=== PATIENT | female | born 1950 | race Caucasian/White ===

== ENCOUNTER 2018-10-13 15:25 | Inpatient (IN) | payer MEDICARE, OTHER ==
[~2018-10-13] VITALS: Ht 155.6 cm; Wt 76.7 kg
[2018-10-13 15:58] VITALS: BMI 31.9
[2018-10-22] VITALS (28 sets, daily range): BP systolic 116–152; BP diastolic 55–76; PULSE 63–78; RESP 13–20; Ht 155.6 cm; Wt 76.7 kg
--- NOTE | 2018-10-22 05:57 | HPN ---
Date/Time of Note Date/Time of Note DATE: 10/22/18 TIME: 05:57 Interval H&P Admission Note Pt. seen H&P reviewed: No system changes PARMINDER CATALAN MD Oct 22, 2018 05:57
--- NOTE | 2018-10-22 05:59 | OPR ---
Date/Time of Note Date/Time of Note DATE: 10/22/18 TIME: 05:57 Operative Report Procedure Date: Oct 22, 2018 Preoperative Diagnosis Left hip primary arthritis Postoperative Diagnosis Left hip primary arthritis Operation/Procedure Performed 1. Left total hip arthroplasty 2. Left hip injection of PRP solution Surgeon see signature line [employer] Quang Pineda PA-C Anesthesia Type: general Estimated Blood Loss: 100 - 150 ml's Transfusion none Specimen None Grafts/Implants See op note Complications none Pt Condition Post Procedure: stable Disposition: PACU Procedure Description INSTALLERS MECHANICAL SURGEON: Quang Pineda PA-C was asked to be present at my request as a result of the complexity associated with this procedure including positioning of the extremity, positioning of the instrumentation and protection of the neurovascular structures. In my opinion, the assistance offered by a geodetic surveyor technologist is insufficient and he should be compensated for his time. PROCEDURE IN DETAIL: Following the administration of general endotracheal anesthesia supplemented with a spinal anesthetic, the patient was placed in the supine position. The antecubital fossa on the left was prepped and 60 cc of blood were aspirated. Under sterile conditions, the blood was passed off to the banking representative from the company who prepared the PRP solution. The left lower extremity was then prepped and draped in the usual sterile fashion. A sausage smoker radiograph was obtained for preliminary limb length and femoral size as well as acetabular size. A lateral incision was then made exposing the tensor fascia the fascia was incised the tensor was retracted laterally and the vessels were cauterized. The anterior capsule was then identified and prepared. A capsulectomy was then performed and the femoral head was then evaluated. Severe arthritic changes were noted. A femoral head cut was then made in the appropriate degree of version and inclination. Following dislocation, severe arthritic changes were noted with very certain severe cystic changes in the femoral head. The acetabulum was then exposed and a capsulectomy and labrectomy were completed. The central portion was then entered and serially reamed up to the 47 mm size. A Depuy Greenleaf cup which was 48 to mm, with a standard liner was then fit into position with solid fixation. A 30 mm screw was used for additional fixation. Attention was then directed to the femur, the femur was exposed and prepared. The canal was entered and serially reamed up to the size 3, standard offset. The femoral canal was then thoroughly irrigated and the PRP solution was then instilled into the femoral canal. A size 3 standard offset Depuy Actis stem was then inserted with solid fixation. A 32 mm, +1.5 mm femoral head, which was ceramic was then inserted. The leg was taken through full range of motion with no evident instability. In addition, radiographs revealed excellent position with reproduction of the limb lengths within a millimeter. The wound was irrigated thoroughly. The wound was then closed in layers and a Prenio for the final cover. This was watertight. Estimated blood loss was procedure was 150 cc. Postoperative radiographs will be obtained in the recovery room. PARMINDER CATALAN MD Oct 22, 2018 05:59
[2018-10-22] MEDS ORDERED: SOD CHLORIDE 0.9% 100 ML, TRANEXAMIC ACID 3,000 MG IRR ONE ×2 (06:00)
[2018-10-22] MEDS ORDERED: TRANEXAMIC ACID 1GM/100ML(PMX) 100 ML IVPB ONE (06:00)
[2018-10-22] MEDS ORDERED: DEXAMETHASONE 1 MG TAB PO ONE (06:00)
[2018-10-22] MEDS ORDERED: GABAPENTIN 300 MG CAP PO ONE (06:00)
[2018-10-22] MEDS ORDERED: CEFAZOLIN 2 GM/50 ML (PMX) 50 ML IVPB ONE (06:00)
[2018-10-22] MEDS ORDERED: RSV10T PO (06:04)
[2018-10-22] MEDS ORDERED: RAMI10CA42 PO (06:04)
[2018-10-22] MEDS ORDERED: OXYC5CAP17 PO (06:04)
[2018-10-22] MEDS ORDERED: DOXY100C PO (06:04)
[2018-10-22] MEDS ORDERED: DOXY100T21 PO (06:04)
[2018-10-22] MEDS: LACTATED RINGER'S 1,000 ML IV SCH ×3 (06:27→17:03)
[2018-10-22] MEDS ORDERED: BUPIVACAINE 0.5% (SDV) 30 ML, morphine SULFATE (PF) 8 MG, EPINEPHrine 0.3 MG, KETOROLAC... IRR SCH ×7 (06:30)
--- NOTE | 2018-10-22 06:44 | PREAC ---
Date/Time of Note Date/Time of Note DATE: 10/22/18 TIME: 06:43 Anesthesia Eval and Record Evaluation Time Pre-Procedure Interview DATE: 10/22/18 TIME: 06:43 Age 68 Sex female NPO: 8 hrs Preoperative diagnosis Hip OA Planned procedure THR Past Medical History Past Medical History: Includes Cardio: HTN, Dyslipidemia GI: Obesity Surgery & Anesthesia Issues No known issue Meds Anticoagulation: No Beta Ceci within 24 hr: No Reason Beta Ceci not given: Pt. not on B-Ceci Reported Medications Doxycycline* (Vibramycin*) 100 Mg Capsule, 100 MG PO BID, EA 10/22/18 Doxycycline Monohydrate* (Doxycycline Monohydrate*) 100 Mg Tablet, 100 MG PO BID, TAB 10/22/18 Oxycodone Hcl* (IR) (Oxycodone Hcl*) 5 Mg Capsule, 10 MG PO Q4H PRN for PAIN, CAP 10/22/18 Rosuvastatin Calcium* (Crestor*) 10 Mg Tablet, 10 MG PO QHS, #30 TAB 10/22/18 Ramipril (Altace) 10 Mg Capsule, 10 MG PO DAILY, CAP 10/22/18 Current Medications Lactated Ringer's 1,000 ml @ 25 mls/hr Q24H IV Last administered on 10/22/18at 06:27; Admin Dose 25 MLS/HR; Start 10/22/18 at 06:00 Meds reviewed: Yes Allergies Coded Allergies: No Known Allergy (Unverified , 10/22/18) Allergies Reviewed: Yes Labs/Studies Labs Reviewed: Reviewed by anesthesiologist test: N/A Studies: ECG Pre-procedure Exam Last vitals Vital Signs Date Temp Pulse Resp B/P (MAP) Pulse Ox O2 O2 Flow FiO2 Time Delivery Rate 10/22/18 98.1 68 18 141/74 96 Room Air 06:05 (96) Airway: Adequate mouth opening, Adequate thyromental dist Mallampati: Mallampati II Teeth: Normal Lung: Normal Heart: Normal ASA Physical Status ASA physical status: 2 Emergency: None Planned Anesthetic General/MAC: ETT Neuraxial: Spinal Planned Pain Management Sub-arachniod narcotics Pre-operative Attestations Prior to commencing anesthesia and surgery, the patient was re-evaluated, there was verification of: *The patient's identity *The results of appropriate recent lab work and preoperative vital signs *The above evaluation not changing prior to induction *Anesthetic plan, risk benefits, alternative and complications discussed with patient/family; questions answered; patient/family understands, accepts and wishes to proceed. AURELIA LANDA Oct 22, 2018 06:44
[2018-10-22] MEDS ORDERED: POLYMYXIN/BACITRACIN 1L IRRIG ONE (06:47)
[2018-10-22] MEDS ORDERED: THROMBIN 5000 UNIT VIAL ONE (06:47)
[2018-10-22] MEDS ORDERED: CA CHLORIDE (GM) 10% 10 ML INJ ONE (06:47)
[2018-10-22] MEDS ORDERED: DIPHENHYDRAMINE 50 MG INJ IV PRN ×2 (07:00→09:00)
[2018-10-22] MEDS ORDERED: HYDROmorphONE 1 MG/5 ML IV SYRINGE IV PRN (07:00)
[2018-10-22] MEDS ORDERED: MEPERIDINE 25 MG INJ IV PRN (07:00)
[2018-10-22] MEDS ORDERED: FENTAnyl 50 MCG/ML VIAL IV PRN ×2 (07:00)
[2018-10-22] MEDS ORDERED: MIDAZOLAM 1 MG/ML 2 ML INJ ONE (07:00)
[2018-10-22] MEDS ORDERED: ONDANSETRON 4 MG INJ IV PRN ×2 (07:00→09:00)
[2018-10-22] MEDS ORDERED: METOCLOPRAMIDE 10 MG INJ IV PRN (07:00)
[2018-10-22] MEDS ORDERED: ALBUTEROL 0.083% (NEB) 2.5 MG/3 ML AMP HHN PRN (07:00)
[2018-10-22] MEDS ORDERED: FENTAnyl 50 MCG/ML VIAL ONE (07:35)
[2018-10-22] MEDS ORDERED: SUCCINYLCHOLINE CHLORIDE 100 MG/5 ML SYG IV ONE (08:48)
[2018-10-22] MEDS ORDERED: LIDOCAINE 100 MG SYRINGE ONE (08:48)
[2018-10-22] MEDS ORDERED: TRANEXAMIC ACID 1GM/100ML(PMX) 100 ML ONE (08:48)
[2018-10-22] MEDS ORDERED: CEFAZOLIN 1 GM INJ ONE (08:48)
[2018-10-22] MEDS ORDERED: NEOSTIGMINE 3 MG/3 ML SYRINGE ONE (08:48)
[2018-10-22] MEDS ORDERED: GLYCOPYRROLATE 0.4 MG INJ ONE (08:48)
[2018-10-22] MEDS ORDERED: ROCURONIUM 50 MG INJ ONE (08:48)
[2018-10-22] MEDS ORDERED: PROPOFOL 20 ML ONE (08:48)
--- NOTE | 2018-10-22 08:51 | PDOCDIS ---
Discharge Instructions DIAGNOSIS Discharge Diagnosis Hip arthritis CONDITION [id number] Patient Condition: Usced2q Good HOME CARE INSTRUCTIONS: [id number] Diet Instructions: [id number] Regular ACTIVITY: [id number] Activity Restrictions: Ierzs2g Slowly Increase Activity Keep Limb Elevated [id number] Bathing Restrictions: Wanbs6g Shower FOLLOW UP/APPOINTMENTS Follow-up Plan 2 weeks in the office SCHOOL/WORK RELEASE May return to School/Work with: With Restrictions School/Work Release Comment: No hip extension for 6 weeks PARMINDER CATALAN MD Oct 22, 2018 08:51
[2018-10-22] MEDS ORDERED: MAGNESIUM HYDROXIDE 30ML CUP PO PRN (09:00)
[2018-10-22] MEDS ORDERED: ZOLPIDEM 5 MG TAB PO PRN (09:00)
[2018-10-22] MEDS ORDERED: NACL 0.9% 3 ML SYG IV SCH (09:00)
[2018-10-22] MEDS: SENNA/DOCUSATE NA (8.6MG/50MG) TAB PO SCH ×3 (09:00→20:19)
[2018-10-22] MEDS ORDERED: oxyCODONE 5 MG TAB PO PRN ×2 (09:00)
[2018-10-22] MEDS: CEFAZOLIN 1 GM/50 ML (PMX) 50 ML IVPB SCH ×2 (09:55→17:03)
[2018-10-22] MEDS: ACETAMINOPHEN 1000MG/100ML IV 100 ML IVPB SCH ×2 (09:55→17:03)
[2018-10-22] MEDS: DEXAMETHASONE 2 MG TAB PO SCH ×3 (11:16→23:44)
[2018-10-22] MEDS: oxyCODONE 5 MG TAB PO PRN ×2 (11:17→16:56)
--- NOTE | 2018-10-22 15:54 | PAC ---
Date/Time of Note Date/Time of Note DATE: 10/22/18 TIME: 15:54 Post-Anesthesia Notes Post-Anesthesia Note Last documented vital signs Vital Signs Date Temp Pulse Resp B/P (MAP) Pulse Ox O2 O2 Flow FiO2 Time Delivery Rate 10/22/18 98.0 75 18 124/60 97 14:16 (81) 10/22/18 Room Air 10:05 Activity: WNL Respiratory function: WNL Cardiovascular function: WNL Mental status: Baseline Pain reasonably controlled: Yes Hydration appropriate: Yes Nausea/Vomiting absent: Yes AURELIA LANDA Oct 22, 2018 15:54
[2018-10-22] MEDS: BENAZEPRIL 40 MG TAB PO SCH (16:00)
[2018-10-22] MEDS: HYDROmorphONE 1 MG/ML SYG IV PRN ×2 (19:33→23:34)
[2018-10-22] MEDS ORDERED: ATORVASTATIN 40 MG TAB PO SCH (21:00)
[2018-10-22] MEDS ORDERED: GABAPENTIN 300 MG CAP PO SCH (21:00)
[2018-10-23] MEDS: CEFAZOLIN 1 GM/50 ML (PMX) 50 ML IVPB SCH (00:39)
[2018-10-23] MEDS: ACETAMINOPHEN 1000MG/100ML IV 100 ML IVPB SCH (01:51)
[2018-10-23] MEDS: HYDROmorphONE 1 MG/ML SYG IV PRN (03:51)
[2018-10-23] MEDS: LACTATED RINGER'S 1,000 ML IV SCH ×2 (05:06→06:00)
[2018-10-23] MEDS: oxyCODONE 5 MG TAB PO PRN ×3 (05:08→13:08)
--- NOTE | 2018-10-23 06:12 | PN ---
Date/Time of Note Date/Time of Note DATE: 10/23/18 TIME: 06:12 Subjective Awake and alert. Comfortable this morning. Anticipating ambulation. Objective Vitals Vital Signs Date Temp Pulse Resp B/P (MAP) Pulse Ox O2 O2 Flow FiO2 Time Delivery Rate 10/22/18 97.8 67 18 137/61 97 19:10 (86) 10/22/18 Room Air 17:45 Intake and Output 10/22/18 10/22/18 10/23/18 1515:00 23:00 07:00 IntakeIntake Total 2000 ml 2950 ml 800 ml OutputOutput Total 350 ml 1650 ml 2500 ml BalanceBalance 1650 ml 1300 ml -1700 ml Wound is clean and dry. Neurologically intact. No signs of DVT. Results Result Diagram: 10/23/18 0425 Medications Medications Current Medications Lactated Ringer's 1,000 ml @ 25 mls/hr Q24H IV Last administered on 10/22/18at 06:27; Admin Dose 25 MLS/HR; Start 10/22/18 at 06:00 Benazepril HCl (Lotensin) 40 mg DAILY PO ; Start 10/22/18 at 16:00 Atorvastatin Calcium (Lipitor) 40 mg DAILY@21 PO Last administered on 10/22/18at 20:19; Admin Dose 40 MG; Start 10/22/18 at 21:00 Lactated Ringer's 1,000 ml @ 100 mls/hr Q10H IV Last administered on 10/23/18at 05:06; Admin Dose 100 MLS/HR; Start 10/22/18 at 08:48 Senna/Docusate Sodium (Senokot-S) 1 tab BID PO Last administered on 10/22/18at 20:19; Admin Dose 1 TAB; Start 10/22/18 at 09:00 Simethicone (Mylicon) 80 mg TID PRN PO .GAS; Start 10/22/18 at 09:00 Magnesium Hydroxide (Milk Of Mag) 30 ml BID PRN PO .CONSTIPATION; Start 10/22/18 at 09:00 Magnesium Hydroxide (Milk Of Mag) 30 ml HS PO ; Start 10/24/18 at 21:00 Gabapentin (Neurontin) 300 mg HS PO Last administered on 10/22/18at 20:19; Admin Dose 300 MG; Start 10/22/18 at 21:00 Oxycodone HCl (Roxicodone) 15 mg Q4H PRN PO .PAIN Last administered on 10/23/18 05:08; Admin Dose 15 MG; Start 10/22/18 at 09:00 Oxycodone HCl (Roxicodone) 10 mg Q4H PRN PO .PAIN Last administered on 10/22/18at 21:40; Admin Dose 10 MG; Start 10/22/18 at 09:00 Oxycodone HCl (Roxicodone) 5 mg Q4H PRN PO .PAIN Last administered on 10/22/18at 22:40; Admin Dose 5 MG; Start 10/22/18 at 09:00 Hydromorphone HCl (Dilaudid) 1 mg Q4H PRN IV .BREAKTHROUGH PAIN Last administered on 10/23/18at 03:51; Admin Dose 1 MG; Start 10/22/18 at 09:00 Ondansetron HCl (Zofran Inj) 4 mg Q6H PRN IV NAUSEA/VOMITING; Start 10/22/18 at 09:00 Diphenhydramine HCl (Benadryl) 25 mg Q6H PRN IV .PRURITUS; Start 10/22/18 at 09:00 Zolpidem Tartrate (Ambien) 10 mg HS PRN PO .INSOMNIA; Start 10/22/18 at 09:00 IV Flush (NS 3 ml) 3 ml per protocol IV ; Start 10/22/18 at 09:00 Aspirin (Ecotrin) 325 mg DAILY PO ; Start 10/23/18 at 09:00 VTE Prophylaxis Risk score (from Nsg)>0 risk: 8 SCD applied (from Nsg): Yes Lines/Catheters IV Catheter Type: Saline Lock Munguia in Place: No Assessment/Plan Assessment/Plan Assessment: Status post total hip replacement Plan: Begin PT this morning and discharge when independent. PARMINDER CATALAN MD Oct 23, 2018 06:12
--- NOTE | 2018-10-23 06:13 | DS ---
Date/Time of Note Date/Time of Note DATE: 10/23/18 TIME: 06:12 Discharge Summary Admission/Discharge Info Admit Date/Time Oct 22, 2018 at 05:22 Discharge Date/Time 10/23/2018 Discharge Diagnosis Hip arthritis Patient Condition: Good Hospital Course Admitted and underwent uncomplicated procedure. Postop day 1 independently ambulatory to be discharged followed up in 2 weeks Home Meds Reported Medications Doxycycline* (Vibramycin*) 100 Mg Capsule, 100 MG PO BID, EA 10/22/18 Oxycodone Hcl* (IR) (Oxycodone Hcl*) 5 Mg Capsule, 10 MG PO Q4H PRN for PAIN, CAP 10/22/18 Rosuvastatin Calcium* (Crestor*) 10 Mg Tablet, 10 MG PO QHS, #30 TAB 10/22/18 Ramipril (Altace) 10 Mg Capsule, 10 MG PO DAILY, CAP 10/22/18 Discontinued Reported Medications Doxycycline Monohydrate* (Doxycycline Monohydrate*) 100 Mg Tablet, 100 MG PO BID, TAB 10/22/18 Follow-up Plan 2 weeks in the office Primary Care Provider Care Physician No Primary Pending Labs Laboratory Tests Test 10/22/18 10:18 10/23/18 04:25 White Blood Count 11.0 10^3/ul (4.8-10.8) 10.8 10^3/ul (4.8-10.8) Red Blood Count 3.40 10^6/ul (4.20-5.40) 3.28 10^6/ul (4.20-5.40) Hemoglobin 10.8 g/dl (12.0-16.0) 10.4 g/dl (12.0-16.0) Hematocrit 33.5 % (37.0-47.0) 31.7 % (37.0-47.0) Mean Corpuscular Volume 98.5 fl (82.0-101.0) 96.6 fl (82.0-101.0) Mean Corpuscular 31.8 pg (29.0-33.0) 31.7 pg (29.0-33.0) Hemoglobin Mean Corpuscular 32.2 g/dl (32.0-37.0) 32.8 g/dl (32.0-37.0) Hemoglobin Concent Red Cell Distribution 12.7 % (11.5-14.5) 12.8 % (11.5-14.5) Width Platelet Count 176 10^3/UL (140-415) 173 10^3/UL (140-415) Mean Platelet Volume 10.1 fl (7.4-10.4) 10.8 fl (7.4-10.4) Immature Granulocytes % 0.600 % (0.001-0.429) 0.500 % (0.001-0.429) Neutrophils % 88.8 % (39.0-77.0) 87.5 % (39.0-77.0) Lymphocytes % 7.4 % (15.0-51.0) 6.5 % (15.0-51.0) Monocytes % 2.6 % (0.0-11.0) 5.4 % (0.0-11.0) Eosinophils % 0.1 % (0.0-7.0) 0.0 % (0.0-7.0) Basophils % 0.5 % (0.0-2.0) 0.1 % (0.0-2.0) Nucleated Red Blood Cells 0.0 /100WBC (0.0-0.0) 0.0 /100WBC (0.0-0.0) % Immature Granulocytes # 0.070 10^3/ul (0.0-0.031) 0.050 10^3/ul (0.0-0.031) Neutrophils # 9.7 10^3/ul (1.6-7.5) 9.5 10^3/ul (1.6-7.5) Lymphocytes # 0.8 10^3/ul (0.8-2.9) 0.7 10^3/ul (0.8-2.9) Monocytes # 0.3 10^3/ul (0.3-0.9) 0.6 10^3/ul (0.3-0.9) Eosinophils # 0.0 10^3/ul (0.0-0.5) 0.0 10^3/ul (0.0-0.5) Basophils # 0.1 10^3/ul (0.0-0.1) 0.0 10^3/ul (0.0-0.1) Nucleated Red Blood Cells 0.0 10^3/ul (0.0-0.0) 0.0 10^3/ul (0.0-0.0) # PARMINDER CATALAN MD Oct 23, 2018 06:13
[2018-10-23 07:39] VITALS: BP 128/64; PULSE 63; RESP 18
[2018-10-23] MEDS: SENNA/DOCUSATE NA (8.6MG/50MG) TAB PO SCH (08:45)
[2018-10-23] MEDS: DEXAMETHASONE 2 MG TAB PO SCH (08:45)
[2018-10-23] MEDS: BENAZEPRIL 40 MG TAB PO SCH (08:46)
[2018-10-23] MEDS ORDERED: ASPIRIN (EC) 325 MG TAB PO SCH (09:00)
[2018-10-24] MEDS ORDERED: MAGNESIUM HYDROXIDE 30ML CUP PO SCH (21:00)
== END 2018-10-23 15:30 | disposition home or self-care (01) | DRG 470 ==
LOC: UNDOADMIN 15:25 → REC 15:25 → MS1 10-22 10:13
PROVIDERS: ADMIT Orthopaedic Surgery; ATTEND Orthopaedic Surgery
PROC: 0SRB03Z Replacement of Left Hip Joint with Ceramic Synthetic Substitute, Open Approach (ICD-10-PCS; principal; 2018-10-22 07:00)
DX: M16.12 Unilateral primary osteoarthritis, left hip (principal)
CPT/HCPCS: 72170; 73530; 85025; 86999; 87086; 88304; 88311; 97116; 97161; 97530; C1713; C1776; J0131; J0171; J0690; J1170; J1885; J2001; J2175; J2250; J2274; J2405; J2710; J3010; J3370; J7120